=== PATIENT | female | born 1945 | race Caucasian/White ===

== ENCOUNTER 2016-07-15 16:16 | Inpatient (IN) | payer MEDICARE, OTHER ==
[~2016-07-15] VITALS: Ht 157.5 cm; Wt 93.2 kg
[2016-07-15] MEDS ORDERED: PRILOSEC10 M1 PO (17:50)
[2016-07-15] MEDS ORDERED: VALIUM 2 MG TAB2 MG PO (18:41)
[2016-07-15] MEDS ORDERED: SYNTHROID100 MCG PO (18:42)
[2016-07-15] MEDS ORDERED: MOBIC7.5 MG PO (18:44)
[2016-07-15] MEDS ORDERED: ESTRACE 0.01% (18:46)
[2016-07-16 02:49] LABS: HEMOGLOBIN 12.1 gm/dl (12.3-15.3); RED BLOOD COUNT 4.27 M/UL (4.00-5.10); WHITE BLOOD COUNT 11.4 K/UL (4.5-11.0)
[2016-07-16 03:09] LABS: BUN/CREATININE RATIO 39 (0-10)
[2016-07-17 04:31] LABS: HEMOGLOBIN 10.9 gm/dl (12.3-15.3); RED BLOOD COUNT 3.89 M/UL (4.00-5.10)
[2016-07-17 04:49] LABS: BUN/CREATININE RATIO 30 (0-10)
[2016-07-18 04:00] LABS: RED BLOOD COUNT 3.93 M/UL (4.00-5.10); WHITE BLOOD COUNT 8.2 K/UL (4.5-11.0)
[2016-07-18 04:18] LABS: BUN/CREATININE RATIO 26 (0-10)
[2016-07-19 03:25] LABS: HEMOGLOBIN 11.1 gm/dl (12.3-15.3); RED BLOOD COUNT 3.97 M/UL (4.00-5.10); WHITE BLOOD COUNT 10.4 K/UL (4.5-11.0)
[2016-07-19 03:56] LABS: BUN/CREATININE RATIO 30 (0-10)
[2016-07-20 03:37] LABS: HEMOGLOBIN 12.2 gm/dl (12.3-15.3); RED BLOOD COUNT 4.29 M/UL (4.00-5.10); WHITE BLOOD COUNT 12.4 K/UL (4.5-11.0)
[2016-07-20 04:02] LABS: BUN/CREATININE RATIO 22 (0-10)
[2016-07-21 06:00] LABS: HEMOGLOBIN 11.4 gm/dl (12.3-15.3); RED BLOOD COUNT 4.09 M/UL (4.00-5.10); WHITE BLOOD COUNT 9.4 K/UL (4.5-11.0)
[2016-07-21 06:22] LABS: BUN/CREATININE RATIO 26 (0-10)
[2016-07-22 05:56] LABS: HEMOGLOBIN 11.3 gm/dl (12.3-15.3); RED BLOOD COUNT 4.06 M/UL (4.00-5.10); WHITE BLOOD COUNT 8.4 K/UL (4.5-11.0)
[2016-07-22 06:28] LABS: BUN/CREATININE RATIO 27 (0-10)
[2016-07-23 04:44] LABS: HEMOGLOBIN 11.1 gm/dl (12.3-15.3); RED BLOOD COUNT 4.02 M/UL (4.00-5.10); WHITE BLOOD COUNT 7.2 K/UL (4.5-11.0)
[2016-07-23 04:57] LABS: BUN/CREATININE RATIO 24 (0-10)
--- NOTE | 2016-07-23 11:06 | NUR ---
REPORTED LOW B/P TO DR SAMSON, PATIENT WITH NO S/X OF ANY CARDIAC INSUFFICIENCY NOTED. DR. SAMSON ACKNOWLEDGED
[2016-07-23] MEDS ORDERED: CEFUROXIME500 MG PO (13:39)
[2016-07-23] MEDS ORDERED: PROTONIX40 MG PO (13:41)
[2016-07-23] MEDS ORDERED: XARELTO15 MG PO (13:42)
[2016-07-23] MEDS ORDERED: VITAMIN B-121000 MC3 PO (13:43)
--- NOTE | 2016-07-23 19:45 | NUR ---
DURING DISCHARGE PHASE: DAUGHTER CONFRONTED ME R/T PATIENT REPORTS OF EARLY EPISODE OF GIVING PATIENT MEDICATION, PHERIPHERAL IV, PATIENT SPOUSE OXYGEN USE, WHY PATIENT NOT DISCHARGE TO SPOUSE, AND REPORTS OF ME WHILE TALKING TO HER THAT I WAS LAUGHING AND HER DISATISFACTION OF FOURHT FLOOR, COMPARED TO 2ND FLOOR. INFORMED DAUGHTER THAT I APOLOGIZE OF THE WAY SHE PERCEIVED OF ME, THE SPOUSE OXYGEN I WAS NOT ON THE FLOOR AT THAT TIME, THAT I DID NOT DISCHARGE PATIENT BECAUSE OF MY CONCERN OF PATIENT SAFETY AND SON IN LAW TOLD ME THAT DAUGHTER ON HER WAY TO PICK PATIENT UP AND CONCERN OF ALL DISCHARGE TEACHING IF PROVIDED WITH THE SPOUSE. THAT IV WAS DUE TO BE CHANGE YESTERDAY AND PLANNED TO CHANGE TODAY BUT PATIENT WAS GOING HOME, THAT I APOLOGIZE FOR HER NOT LIKING 4TH FLOOR. CAME BACK TO PATIENT ROOM WITH GARRETT CHARGE NURSE THIS EVENING. PROVIDED ALL DISCHARGE TEACHING AND DAUGHTER VERB UNDERSTANDING AND DENIES ANY QUESTION.
== END 2016-07-23 20:00 | disposition home health service (06) | DRG 175 ==
LOC: PROG CARE 16:16 → MED SURG 4 17:20
PROVIDERS: Hospitalist; Internal Medicine; ADMIT Family Medicine
DX: I26.09 Other pulmonary embolism with acute cor pulmonale (principal); I21.4 Non-ST elevation (NSTEMI) myocardial infarction; J96.01 Acute respiratory failure with hypoxia; I82.412 Acute embolism and thrombosis of left femoral vein; E87.2 Acidosis; N30.01 Acute cystitis with hematuria; J98.11 Atelectasis; J90 Pleural effusion, not elsewhere classified; I48.91 Unspecified atrial fibrillation; G47.33 Obstructive sleep apnea (adult) (pediatric); Z86.73 Personal history of transient ischemic attack (TIA), and cerebral infarction without residual deficits; F41.9 Anxiety disorder, unspecified; K21.9 Gastro-esophageal reflux disease without esophagitis; E03.9 Hypothyroidism, unspecified; Z86.718 Personal history of other venous thrombosis and embolism; Z82.49 Family history of ischemic heart disease and other diseases of the circulatory system; Z80.41 Family history of malignant neoplasm of ovary; Z80.3 Family history of malignant neoplasm of breast; Z80.1 Family history of malignant neoplasm of trachea, bronchus and lung; F32.9 Major depressive disorder, single episode, unspecified; I95.89 Other hypotension; R63.0 Anorexia; R53.1 Weakness; S80.812D Abrasion, left lower leg, subsequent encounter; W55.03XD Scratched by cat, subsequent encounter; Z79.899 Other long term (current) drug therapy
CPT/HCPCS: ECHO; 36415; 71020; 80048; 80053; 80061; 80076; 80202; 81001; 82550; 82553; 82565; 82607; 82728; 82746; 83036; 83540; 83550; 83605; 83735; 84132; 84439; 84443; 84484; 85025; 85027; 85379; 85610; 85730; 86140; 87040; 87086; 93005; 93306; 93970; 94640; 94660; 94664; 97110; 97116; 97535; J0696; J1160; J1644; J1650; J1940; J2405; J2543; J3370; J7030; J7040; J7050; J7070; Q9963